=== PATIENT | female | born 1995 | race Caucasian/White ===

== ENCOUNTER 2019-01-06 17:38 | Emergency (ER) | payer SELFPAY ==
[~2019-01-06] VITALS: Ht 162.6 cm; Wt 68.2 kg
[2019-01-06] MEDS ORDERED: SODIUM CHLORIDE 0.9% 1,000 ML IV ONE (20:00)
[2019-01-06 20:02] LABS: BASOPHILS % (AUTO) 0.3 % (0.0-2.0); EOSINOPHILS % (AUTO) 1.9 % (1.0-6.0); HEMATOCRIT 41.1 % (36-46); HEMOGLOBIN 13.7 g/dL (12.0-16.0); LYMPHOCYTES % (AUTO) 39.5 % (22.0-44.0); MEAN CORPUSCULAR HEMOGLOBIN 31.2 pg (26.0-34.0); MEAN CORPUSCULAR HGB CONC 33.3 G/dL (31.0-37.0); MEAN CORPUSCULAR VOLUME 94 fL (80-100); MONOCYTES # (AUTO) 0.5 K/uL (0.1-1.0); MONOCYTES % (AUTO) 6.8 % (2.0-9.0); NEUTROPHILS # (AUTO) 3.9 K/uL (1.8-7.7); NEUTROPHILS % (AUTO) 51.5 % (40.0-70.0); PLATELET COUNT (AUTO) 199 K/uL (150-450); RED BLOOD CELL COUNT(AUTO) 4.38 MIL/uL (4.00-5.20)
[2019-01-06 20:09] LABS: APPEARANCE,URINE CLOUDY (CLEAR); BILIRUBIN,URINE NEGATIVE (NEGATIVE); GLUCOSE, URINE (UA) NEGATIVE (NEGATIVE); KETONES,URINE NEGATIVE (NEGATIVE); LEUKOCYTE ESTERASE ,URINE NEGATIVE (NEGATIVE); NITRATE,URINE NEGATIVE (NEGATIVE); OCCULT BLOOD,URINE NEGATIVE (NEGATIVE); PH,URINE 7.5 (5.0-8.0); PROTEIN,URINE NEGATIVE (NEGATIVE); UROBILINOGEN,URINE 0.2 mg/dL (<=1.0)
[2019-01-06 20:15] LABS: ANION GAP 8 mmol/L (8-16); CALCIUM, TOTAL 8.9 mg/dL (8.8-10.5); CARBON DIOXIDE 28 mmol/L (22-29); CHLORIDE 107 mmol/L (98-107); CREATININE 0.73 mg/dL (0.60-1.30); GLOMERULAR FILTR. RATE CALC > 60 mL/min (>60); GLUCOSE,RANDOM 98 mg/dL (70-110); POTASSIUM 3.9 mmol/L (3.5-5.1); SODIUM SERUM 143 mmol/L (136-145); UREA NITROGEN, BLOOD 9 mg/dL (7-18)
[2019-01-06 20:26] LABS: ALANINE AMINOTRANSFERASE 17 U/L (12-78); ALKALINE PHOSPHATASE 66 U/L (46-116); ASPARTATE AMINOTRANSFERASE 16 U/L (15-37); BILIRUBIN,TOTAL 0.6 mg/dL (0.1-1.0); HCG,QUANTITATIVE < 1 mIU/mL (0-6); TOTAL PROTEIN, SERUM 7.5 g/dL (6.4-8.2)
[2019-01-06 20:56] VITALS: BP 115/77
== END 2019-01-06 21:31 | disposition home or self-care (01) ==
LOC: EMS 17:40
DX: R42 Dizziness and giddiness (principal); R51 Headache; F12.90 Cannabis use, unspecified, uncomplicated; Z98.890 Other specified postprocedural states
CPT/HCPCS: 36415; 80053; 81003; 84484; 84702; 85025; 93005; 96360; 99285; J7030

== ENCOUNTER 2021-04-01 15:18 | Emergency (ER) | payer OTHER ==
[~2021-04-01] VITALS: Ht 160 cm; Wt 59.1 kg
[2021-04-01] MEDS ORDERED: HYDR-4723 PO (18:46)
[2021-04-01] MEDS ORDERED: IBUP-2070 PO (18:46)
[2021-04-01 19:00] VITALS: BP 132/88
== END 2021-04-01 19:15 | disposition home or self-care (01) ==
LOC: EMS 15:20
DX: S62.307A Unspecified fracture of fifth metacarpal bone, left hand, initial encounter for closed fracture (principal); V00.131A Fall from skateboard, initial encounter; Y93.51 Activity, roller skating (inline) and skateboarding; Y92.89 Other specified places as the place of occurrence of the external cause; Y99.8 Other external cause status
CPT/HCPCS: 99283

== ENCOUNTER 2021-08-22 12:38 | Emergency (ER) | payer OTHER ==
[~2021-08-22] VITALS: Ht 162.6 cm; Wt 63.6 kg
[~2021-08-22 12:38] MED LIST: HYDR-4723 PO; IBUP-2070 PO
[2021-08-22 12:54] LABS: COVID AG,FIA SOURCE NASAL SWAB
[2021-08-22 13:29] VITALS: BP 109/56
== END 2021-08-22 13:34 | disposition home or self-care (01) ==
LOC: EMS 12:39
DX: F12.90 Cannabis use, unspecified, uncomplicated (principal); Z20.822 Contact with and (suspected) exposure to COVID-19; Z86.16 Personal history of COVID-19; Z87.898 Personal history of other specified conditions; Z98.890 Other specified postprocedural states
CPT/HCPCS: 99283

== ENCOUNTER 2022-03-28 09:20 | Emergency (ER) | payer OTHER ==
[~2022-03-28] VITALS: Ht 167.6 cm; Wt 70.0 kg
[~2022-03-28 09:20] MED LIST changes: +IBUP-1492 PO; -IBUP-2070 PO
[2022-03-28 10:00] VITALS: BP 122/63
[2022-03-28] MEDS ORDERED: MOXI3DRO27 OU ×2 (10:14→11:15)
== END 2022-03-28 10:38 | disposition home or self-care (01) ==
LOC: EMS 09:24
DX: H10.9 Unspecified conjunctivitis (principal); J06.9 Acute upper respiratory infection, unspecified; F12.90 Cannabis use, unspecified, uncomplicated
CPT/HCPCS: 99283; Z7502

== ENCOUNTER 2024-11-06 11:48 | Emergency (ER) | payer MEDICAID, OTHER ==
[~2024-11-06] VITALS: Ht 162.6 cm; Wt 81.7 kg
[~2024-11-06 11:48] MED LIST changes: +HYDR-4062 PO; -HYDR-4723 PO; +MOXI3DRO27 OU
[2024-11-06 11:56] VITALS: BP 119/71; PULSE 72; RESP 18; TEMP 98; O2SAT 99
[2024-11-06] MEDS ORDERED: METR500 PO (15:46)
[2024-11-06 16:36] LABS: APPEARANCE,URINE HAZY (CLEAR); GLUCOSE, URINE (UA) NEGATIVE (NEGATIVE); LEUKOCYTE ESTERASE ,URINE LARGE (NEGATIVE); NITRATE,URINE NEGATIVE (NEGATIVE); OCCULT BLOOD,URINE NEGATIVE (NEGATIVE); SPECIFIC GRAVITIY, URINE 1.013 (1.003-1.030)
[2024-11-06 16:55] LABS: SQUAMOUS EPITHELIAL CELL,UR Moderate /LPF (None Seen)
== END 2024-11-06 16:25 | disposition home or self-care (01) ==
LOC: EMS 11:54
DX: A59.01 Trichomonal vulvovaginitis (principal); F12.90 Cannabis use, unspecified, uncomplicated; Z79.899 Other long term (current) drug therapy
CPT/HCPCS: 81001; 84703; 87086; 87210; 87491; 87591; 99283

== ENCOUNTER 2024-11-28 17:37 | Emergency (ER) | payer MEDICAID, OTHER ==
[~2024-11-28] VITALS: Ht 162.6 cm; Wt 72.7 kg
[~2024-11-28 17:37] MED LIST changes: +METR500 PO
[2024-11-28 17:43] VITALS: TEMP 97.5
[2024-11-28 18:15] LABS: PLATELET COUNT (AUTO) 258 K/uL (150-450); RED BLOOD CELL COUNT(AUTO) 4.72 MIL/uL (4.00-5.20); RED CELL DISTRIBUTION WIDTH 14.3 % (11.5-14.5); WHITE BLOOD COUNT (AUTO) 9.5 K/uL (4.5-11.0)
[2024-11-28 18:26] LABS: CALCIUM, TOTAL 8.8 mg/dL (8.8-10.5); CREATININE 0.62 mg/dL (0.60-1.30); GLOMERULAR FILTR. RATE CALC > 60 mL/min (>60); GLUCOSE,RANDOM 119 mg/dL (70-110); SODIUM SERUM 137 mmol/L (136-145); UREA NITROGEN, BLOOD 6 mg/dL (7-18)
[2024-11-28 18:33] LABS: ASPARTATE AMINOTRANSFERASE 18 U/L (15-37); HCG,QUANTITATIVE < 1 mIU/mL (0-6); TOTAL PROTEIN, SERUM 7.5 g/dL (6.4-8.2)
[2024-11-28] MEDS: FAMOTIDINE 20 MG TABLET PO ONE (19:33)
[2024-11-28] MEDS: ACETAMINOPHEN 500 MG TABLET PO ONE (19:33)
[2024-11-28] MEDS: MAG HYDROX/ALUMINUM HYD/SIMETH 30 ML SUSPENSION UDCUP PO ONE (19:33)
[2024-11-28 23:00] VITALS: BP 128/67; PULSE 71; RESP 18; O2SAT 98
== END 2024-11-29 02:25 | disposition home or self-care (01) ==
LOC: EMS 17:37
DX: R10.10 Upper abdominal pain, unspecified (principal); R10.13 Epigastric pain; F12.90 Cannabis use, unspecified, uncomplicated; N89.8 Other specified noninflammatory disorders of vagina; Z79.899 Other long term (current) drug therapy
CPT/HCPCS: 76705; 80048; 80076; 83690; 84702; 85025; 99284